=== PATIENT | male | born 1990 | race African-American/Black ===

== ENCOUNTER 2016-03-31 00:46 | Emergency (ER) | payer OTHER ==
[~2016-03-31] VITALS: Ht 167.6 cm; Wt 58.1 kg
[~2016-03-31 00:46] MED LIST: ALLEGRA ALLERG180 MG PO; DOXYCYCLINE 10100 MG PO; IBUPROFEN 600600 M1 PO; IBUPROFEN 800800 M1 PO; KEFLEX500 MG PO; NOHOMEMEDICATIONS; PENICILLIN VK250 MG PO; PHENERGAN 25 MG25 M1 PO; PROAIR HFA8.5 GM IH; PROVENTIL HFA6.7 G1 INH; TRAMADOL 50 MG50 MG PO; ZPAK PO
[2016-03-31 00:53] VITALS: BP 135/83
[2016-03-31] MEDS ORDERED: NORCO 5-325 TA1 EACH PO (01:12)
== END 2016-03-31 01:24 | disposition home or self-care (01) ==
LOC: ER 00:46
DX: K08.89 Other specified disorders of teeth and supporting structures (principal); J45.909 Unspecified asthma, uncomplicated; F17.210 Nicotine dependence, cigarettes, uncomplicated; F10.99 Alcohol use, unspecified with unspecified alcohol-induced disorder

== ENCOUNTER 2017-12-25 19:40 | Emergency (ER) | payer OTHER ==
[~2017-12-25] VITALS: Ht 165.1 cm; Wt 56.7 kg
[~2017-12-25 19:40] MED LIST changes: +NORCO 5-325 TA1 EACH PO
[2017-12-25 19:42] VITALS: BP 147/83
== END 2017-12-25 20:56 | disposition home or self-care (01) ==
LOC: ER 19:40
DX: Z20.2 Contact with and (suspected) exposure to infections with a predominantly sexual mode of transmission (principal); J45.909 Unspecified asthma, uncomplicated; F17.210 Nicotine dependence, cigarettes, uncomplicated